=== PATIENT | male | born 1955 | race Asian ===

== ENCOUNTER 2018-05-18 10:36 | Outpatient (CLI) | payer OTHER ==
[~2018-05-18 10:36] MED LIST: ASPIRIN CHLD81 MG OR; INSUINJ47 SC; LISI5TAB10 PO
[2018-05-18 11:04] LABS: POTASSIUM 4.9 mmol/L (3.6-5.2)
== END 2018-05-18 21:33 | disposition home or self-care (01) ==
LOC: LABW 10:36
PROVIDERS: Specialist
DX: I63.8 Other cerebral infarction (principal)
CPT/HCPCS: 36415; 80053; 80061; 82607; 83090; 85651; 86039